=== PATIENT | female | born 1970 | race Caucasian/White ===

== ENCOUNTER 2017-07-25 14:45 | Emergency (ER) | payer OTHER ==
[2017-07-25 14:55] VITALS: BP 150/85
--- NOTE | 2017-07-25 15:14 | UC ---
Jose Enrique Baker Gabriel, scribed for Zabrina Solano MD on 07/25/17 at 1503 . Ear Complaint HPI - HPI Summary HPI Summary: This patient is a 46 year old F presenting to [facility] with a chief complaint of left ear pain that began today at noon. Pt states she felt ear congestion this morning upon waking up but it began to hurt until later. The patient rates the pain 5/10 in severity. Symptoms aggravated by chewing. Symptoms alleviated by nothing, pt has taken Motrin with no relief. Patient denies drainage. Pt states she has had flu like symptoms two days ago that have since resolved. She was experiencing myalgia, fatigue, and sore throat. Pt with mild nasal congestion and PND. She has not taken any decongestants and denies recent travel. NKDA and denies chance of . Patients medication reviewed this visit. - History of Current Complaint Chief Complaint: UCEar Stated Complaint: LEFT EAR COMPLAINT Time Seen by Provider: 07/25/17 14:52 Hx Obtained From: Patient Onset/Duration: Lasting Hours, Still Present Severity Initially: Moderate Severity Currently: Moderate Pain Intensity: 5 Pain Scale Used: 0-10 Numeric Associated Signs/Symptoms: Negative: Discharge, Hearing Loss - Allergies/Home Medications Allergies/Adverse Reactions: Allergies Allergy/AdvReac Type Severity Reaction Status Date / Time No Known Allergies Allergy Verified 07/25/17 14:50 Home Medications: Home Medications Ibuprofen [Advil] 400 mg PO Q8HR PRN 07/25/17 [History Confirmed 07/25/17] PMH/Surg Hx/FS Hx/Imm Hx Previously Healthy: Yes Other History Of: Negative For: Hepatitis C, Anticoagulant Therapy - Surgical History Surgical History: Yes Surgery Procedure, Year, and Place: c section - Family History Known Family History: Negative: Cardiac Disease, Hypertension, Diabetes, Renal Disease, Respiratory Disease, Seizure Disorder - Social History Occupation: Employed Full-time Lives: With Family Alcohol Use: Occasionally Substance Use Type: None Smoking Status (MU): Never Smoked Tobacco Review of Systems Constitutional: Negative - fever ENT: Ear Ache, Other - ears feel clogged All Other Systems Reviewed And Are Negative: Yes Physical Exam Triage Information Reviewed: Yes Appearance: Well-Appearing, No Pain Distress, Well-Nourished Vital Signs: Initial Vital Signs Temp 98.5 F 07/25/17 14:51 Pulse 72 07/25/17 14:51 Resp 18 07/25/17 14:51 BP 150/85 07/25/17 14:51 Pulse Ox 99 07/25/17 14:51 Vital Signs Reviewed: Yes Eye Exam: Normal Eyes: Positive: Conjunctiva Clear ENT: Positive: Hearing grossly normal, Pharynx normal, Nasal congestion, TM bulging, TM red, Other - left TM ++ fluid, erythema, buldge right TM wnl turbinates boggy + PND uvula midline no exudate, no erythema No mastoid pain No temporal artery discomfort Neck exam: Normal Neck: Positive: Supple, Nontender, No Lymphadenopathy Respiratory Exam: Normal Respiratory: Positive: Chest non-tender, Lungs clear, Normal breath sounds, No respiratory distress, No accessory muscle use Cardiovascular Exam: Normal Cardiovascular: Positive: RRR, No Murmur Neurological Exam: Normal Neurological: Positive: Alert Psychological Exam: Normal Psychological: Positive: Normal Response To Family Skin Exam: Normal Ear Complaint Course/Dx - Course Course Of Treatment: Blood pressure noted and patient informed to follow up with PCP -d/w pt aware and will follow-up. Pt with viral syndrome now with left OM. Amox. flonse. decongestant. motrin/apap. secretion precaution - Differential Dx/Diagnosis Provider Diagnoses: Left OM. Elevated blood pressure without a previous diagnoses of hypertension Discharge - Sign-Out/Discharge Documenting (check all that apply): Discharge/Admit/Transfer - Discharge Plan Condition: Stable Disposition: HOME Prescriptions: Amoxicillin PO (*) [Amoxicillin 875 MG (*)] 875 mg PO BID #20 tab Fluticasone NASAL SPRAY 50MCG* [Flonase NASAL SPRAY 50MCG*] 2 spray BOTH NARES DAILY #1 btl Patient Education Materials: Ear Infection (ED) Referrals: Todd Matthews MD [Primary Care Provider] - Additional Instructions: - Take antibiotics as prescribed until gone - Alternate ibuprofen (Advil, Motrin) 600mg and Tylenol every 3 hours as needed for pain or fever - Use nasal spray daily as prescribed - It is recommended you take a decongestant to help with the pressure you are feeling in your ear - These infections are spread by secretions - do NOT share eating or drinking utensils - clean items you share with other people such as cell phones, computer mouse, TV remote, computer tablets,etc. After you have have been antibiotics for 2 days, change your toothbrush and your pillowcase - As discussed, you blood pressure was mildly elevated at today's visit. It is recommended you monitor and schedule a follow-up appointment - Billing Disposition and Condition Condition: STABLE Disposition: HOME The documentation as recorded by the Jose Enrique hogan Gabriel accurately reflects the service I personally performed and the decisions made by me, Zabrina Solano MD.
== END 2017-07-25 15:18 | disposition home or self-care (01) ==
LOC: UCEAST 14:45
DX: H66.92 Otitis media, unspecified, left ear (principal); R03.0 Elevated blood-pressure reading, without diagnosis of hypertension
CPT/HCPCS: 99212; G0463

== ENCOUNTER 2018-05-03 23:46 | Emergency (ER) | payer OTHER ==
--- NOTE | 2018-05-04 01:09 | ED ---
HPI Cardiac - HPI Summary HPI Summary: This patient is a 47 year old female presenting to [facility] with a chief complaint of palpitations since 3 hours ago. Patient states that after she put her son to bed, she states that her heart started racing. Patient states that, according to her apple watch, her heart rate durga above 160 BPM and around 120 BPM and felt that it may have been irregular. The episode lasted around 1 hour and resolved. The entire episode lasted when she was lying in bed and at rest. The pain is rated 0/10 in severity. Symptoms aggravated by nothing. Symptoms alleviated by nothing. Patient additionally reports nausea with the palpitations. Patient states this was completely new to her. - History of Current Complaint Chief Complaint: EDDizziness Stated Complaint: RAPID HR Time Seen by Provider: 05/04/18 00:36 Hx Obtained From: Patient Onset/Duration: Started Hours Ago, Resolved Timing: Constant Current Severity: None Pain Intensity: 0 Pain Scale Used: 0-10 Numeric Character: Fast Aggravating Factor(s): Nothing Alleviating Factor(s): Nothing Associated Signs and Symptoms: Positive: Nausea - Allergy/Home Medications Allergies/Adverse Reactions: Allergies Allergy/AdvReac Type Severity Reaction Status Date / Time No Known Allergies Allergy Verified 05/03/18 23:49 PMH/Surg Hx/FS Hx/Imm Hx Previously Healthy: Yes Endocrine/Hematology History: Denies: Hx Anticoagulant Therapy Opthamlomology History: Denies: Hx Legally Blind EENT History: Denies: Hx Deafness - Surgical History Surgery Procedure, Year, and Place: c section Infectious Disease History: No Infectious Disease History: Denies: Traveled Outside the [place] in Last 30 Days - Family History Known Family History: Negative: Cardiac Disease, Hypertension, Diabetes, Renal Disease, Respiratory Disease, Seizure Disorder - Social History Lives: With Family Alcohol Use: Occasionally Hx Substance Use: No Substance Use Type: Reports: None Hx Tobacco Use: No Smoking Status (MU): Never Smoked Tobacco Review of Systems Negative: Fever Positive: Palpitations Positive: Nausea All Other Systems Reviewed And Are Negative: Yes Physical Exam - Summary Physical Exam Summary: VITAL SIGNS: Reviewed. GENERAL: Patient is a well-developed and nourished female who is lying comfortable in the stretcher. Patient is not in any acute respiratory distress. HEAD AND FACE: No signs of trauma. No ecchymosis, hematomas or skull depressions. No sinus tenderness. EYES: PERRLA, EOMI x 2, No injected conjunctiva, no nystagmus. EARS: Hearing grossly intact. Ear canals and tympanic membranes are within normal limits. MOUTH: Oropharynx within normal limits. NECK: Supple, trachea is midline, no adenopathy, no JVD, no carotid bruit, no c- spine tenderness, neck with full ROM. CHEST: Symmetric, no tenderness at palpation LUNGS: Clear to auscultation bilaterally. No wheezing or crackles. CVS: Regular rate and rhythm, S1 and S2 present, no murmurs or gallops appreciated. ABDOMEN: Soft, non-tender. No signs of distention. No rebound no guarding, and no masses palpated. Bowel sounds are normal. EXTREMITIES: FROM in all major joints, no edema, no cyanosis or clubbing. NEURO: Alert and oriented x 3. No acute neurological deficits. Speech is normal and follows commands. SKIN: Dry and warm Triage Information Reviewed: Yes Vital Signs On Initial Exam: Initial Vitals Temp Pulse Resp BP Pulse Ox 97.5 F 99 18 127/104 99 05/03/18 23:48 05/03/18 23:48 05/03/18 23:48 05/03/18 23:48 05/03/18 23:48 Vital Signs Reviewed: Yes Diagnostics - Vital Signs Vital Signs Temp Pulse Resp BP Pulse Ox 05/04/18 01:00 78 23 97 05/04/18 00:45 17 117/71 05/04/18 00:40 11 05/03/18 23:48 97.5 F 99 18 127/104 99 - Laboratory Result Diagrams: 05/04/18 01:16 05/04/18 01:16 Lab Statement: Any lab studies that have been ordered have been reviewed, and results considered in the medical decision making process. - EKG 2352 Cardiac Rate: NL EKG Rhythm: Sinus Rhythm - 92 BPM Summary of EKG Findings: An EKG, taken 2352, reveals NSR (92 BPM), normal axis, normal intervals, no ischemic changes Disposition - Course Course Of Treatment: This patient is a 47 year old female presenting to [facility] with a chief complaint of palpitations since 3 hours ago. Patient states that after she put her son to bed, she states that her heart started racing. Patient states that her heart rate durga above 160 BPM and around 120 BPM and felt that it may have been irregular. The episode lasted around 1 hour and resolved. An EKG, taken 235, reveals NSR (92 BPM), normal axis, normal intervals, no ischemic changes. Bloodwork Obtained. In the ED course the patient was given potassium chloride. Patient will be discharged with palpitations. Patient is advised to follow up with Dr. Diaz (Cardiology) in 2 days. The patient is agreeable with this plan. - Diagnoses Provider Diagnoses: Palpitations Discharge - Sign-Out/Discharge Documenting (check all that apply): Patient Departure Patient Received Moderate/Deep Sedation with Procedure: No - Discharge Plan Condition: Stable Disposition: HOME Patient Education Materials: Heart Palpitations (ED) Referrals: Rupal Sommer MD [Primary Care Provider] - 2 Days Cliff Diaz MD [Medical Doctor] - 2 Days Additional Instructions: Return to the ED for any new or worsening symptoms. - Billing Disposition and Condition Condition: STABLE Disposition: Home - Attestation Statements Document Initiated by Horacio: Yes Documenting Scribe: Anjelica Barrera Provider For Whom Horacio is Documenting (Include Credential): Ramon Bolden MD Scribe Attestation: Anjelica Baker scribed for Ramon Bolden MD on 05/04/18 at 0244. Scribe Documentation Reviewed: Yes Provider Attestation: The documentation as recorded by the Anjelica hogan accurately reflects the service I personally performed and the decisions made by , Ramon Bolden MD Status of Scribe Document: Viewed
[2018-05-04 01:24] LABS: Hematocrit 36 % (35-47); Mean Corpuscular HGB Conc 33 g/dl (31-36); Mean Corpuscular Hemoglobin 29 pg (27-31); Mean Corpuscular Volume 87 fL (80-97); Mean Platelet Volume 8.2 fL (7.4-10.4); Platelet Count 355 10^3/ul (150-450); Red Blood Count 4.15 10^6/ul (4.00-5.40); Red Cell Distribution Width 13 % (10.5-15); White Blood Count 7.5 10^3/ul (3.5-10.8)
[2018-05-04 01:29] LABS: ABS Basophils 0.1 10^3/ul (0-0.2); ABS Eosinophils 0.1 10^3/ul (0-0.6); ABS Monocytes 0.7 10^3/ul (0-0.8); ABS Neutrophils 4.7 10^3/ul (1.5-7.7); ABS Nucleated RBC 0 10^3/ul; Eosinophil % 1.1 %; Lymphocyte % 26.1 %; Nucleated Red Blood Cells % 0.1
[2018-05-04 01:32] LABS: Activated Partial Thrombo Time 30.7 seconds (26.0-36.3); INR 0.95 (0.77-1.02)
[2018-05-04 01:41] LABS: Albumin/Globulin Ratio 1.3 (1-3); BUN/Creatinine Ratio 22.4 (8-20); Calcium 9.3 mg/dL (8.6-10.3); EGFR African American 98.3 (>60); EGFR Non-African American 81.2 (>60); Potassium 3.4 mmol/L (3.5-5.0); Total Bilirubin 0.3 mg/dL (0.2-1.0)
[2018-05-04 01:57] LABS: T4, Total 6.02 g/dL (6.09-12.23)
[2018-05-04 02:01] LABS: TSH (Thyroid Stimulating Horm) 4.16 mcIU/mL (0.34-5.60)
[2018-05-04] MEDS ORDERED: Potassium Chlor TAB* 20 MEQ TAB.ER PO ONE (02:05)
[2018-05-04 03:46] VITALS: BP 137/79
== END 2018-05-04 02:50 | disposition home or self-care (01) ==
LOC: ED 23:46
DX: R00.2 Palpitations (principal); R11.0 Nausea
CPT/HCPCS: 36415; 80053; 83735; 84436; 84443; 84484; 85025; 85610; 85730; 93005; 99282; A9270-GY